=== PATIENT | female | born 1980 | race Caucasian/White ===

== ENCOUNTER 2016-03-06 14:20 | Emergency (ER) | payer MEDICAID, OTHER ==
--- NOTE | 2016-03-06 15:46 | RAD ---
FOOT LEFT 3 VIEWS COMPARISON: None. HISTORY: Left lateral foot pain, injury while wrestling. FINDINGS: Views: Left foot dorsoplantar, medial oblique, lateral. Bones: Minimally displaced fracture at the proximal diaphysis of the little toe proximal phalanx. Deformity at the head of the second metatarsal with an ossicle at the tibial side of the second metatarsophalangeal joint. Mild plantar calcaneal enthesophyte. Joints: Normal. Soft tissues: Normal. IMPRESSION: 1. Fracture of the proximal phalanx of the left little toe. 2. Deformity of the distal end of the second metatarsal consistent with prior osteochondrosis, now healed. 3. Mild plantar calcaneal enthesophyte.
== END 2016-03-06 16:43 | disposition home or self-care (01) ==
LOC: ED 14:20
DX: S92.512A Displaced fracture of proximal phalanx of left lesser toe(s), initial encounter for closed fracture (principal); X50.0XXA Overexertion from strenuous movement or load, initial encounter; Y93.72 Activity, wrestling; Y92.9 Unspecified place or not applicable